=== PATIENT | female | born 1950 | race Caucasian/White ===

== ENCOUNTER 2021-09-14 11:58 | Emergency (ER) | payer MEDICARE, OTHER ==
[~2021-09-14] VITALS: Ht 165.1 cm; Wt 83.0 kg
[2021-09-14] VITALS (9 sets, daily range): BP systolic 83–135; BP diastolic 58–78
[2021-09-14] MEDS ORDERED: OMNI-PAC300 MG PO (14:34)
== END 2021-09-14 14:52 | disposition home or self-care (01) ==
LOC: ED 11:58
PROC: 0HCMXZZ Extirpation of Matter from Right Foot Skin, External Approach (ICD-10-PCS; principal; 2021-09-14)
DX: S90.851A Superficial foreign body, right foot, initial encounter (principal); I10 Essential (primary) hypertension; E11.9 Type 2 diabetes mellitus without complications; E04.1 Nontoxic single thyroid nodule; W45.8XXA Other foreign body or object entering through skin, initial encounter; Y93.H2 Activity, gardening and landscaping; Y92.007 Garden or yard of unspecified non-institutional (private) residence as the place of occurrence of the external cause